=== PATIENT | female | born 1945 | race Caucasian/White ===

== ENCOUNTER → 2018-09-15 | Outpatient (CLI) | payer MEDICARE ==
[~2018-09-15] MED LIST: ALEN5TAB2 PO; ATOR20TA37 PO; LEVO50TA5 PO; LIDOCAINE 1%, 20ML ONE; LIDOCAINE 1%-EPI 1:100K, 20ML ONE; SODIUM BICARBONATE 4.0%, 5ML ONE
== END | disposition home or self-care (01) ==
LOC: CFH 08:45
PROVIDERS: ATTEND Surgery
DX: C50.911 Malignant neoplasm of unspecified site of right female breast (principal)
CPT/HCPCS: 19285; 77065; J3490

== ENCOUNTER 2018-09-21 08:03 | Day surgery (SDC) | payer MEDICARE ==
[2018-09-13 10:53] VITALS: BP 158/85
[~2018-09-21] VITALS: Ht 157.5 cm; Wt 66.0 kg
[~2018-09-21 08:03] MED LIST changes: +BUPIVACAINE/PF-EPI 0.5% 1:200K ONE; +ISOSULFAN BLUE 10 MG/ML, 5ML IV ONE; -LIDOCAINE 1%, 20ML ONE; -LIDOCAINE 1%-EPI 1:100K, 20ML ONE; -SODIUM BICARBONATE 4.0%, 5ML ONE
[2018-09-21] MEDS ORDERED: LIDOCAINE-MPF 1%, 5ML ONE (08:19)
[2018-09-21] MEDS ORDERED: SODIUM BICARBONATE 4.0%, 5ML ONE (08:19)
[2018-09-21] MEDS ORDERED: MIDAZOLAM 1 MG/ML, 2ML ONE (08:40)
[2018-09-21] MEDS ORDERED: FENTANYL PF 250 MCG/5ML ONE (08:40)
[2018-09-21] MEDS ORDERED: LACTATED RINGERS 1,000 ML IV SCH (09:27)
[2018-09-21] MEDS ORDERED: ACETAMINOPHEN 500 MG TABLET PO ONE (09:30)
[2018-09-21] MEDS ORDERED: GABAPENTIN 300 MG CAPSULE PO ONE (09:30)
[2018-09-21] MEDS ORDERED: ONDANSETRON ODT 8 MG PO ONE (09:30)
[2018-09-21] MEDS ORDERED: SCOPOLAMINE PATCH, 1.5MG PATCH.TD72 TD ONE (09:30)
[2018-09-21] MEDS ORDERED: FENTANYL PF 100 MCG/2ML IV PRN (10:00)
[2018-09-21] MEDS ORDERED: hydrALAzine 20 MG/ML, 1ML IV PRN (10:00)
[2018-09-21] MEDS ORDERED: ONDANSETRON 2MG/ML, 2ML IV PRN (10:00)
[2018-09-21] MEDS ORDERED: HYDROmorphone 2 MG/ML, 1ML IVPush PRN (10:00)
[2018-09-21] MEDS ORDERED: LABETALOL 5MG/ML, 20ML IV PRN (10:00)
[2018-09-21] MEDS ORDERED: MEPERIDINE/PF 25MG/0.5ML IVPush PRN (10:00)
[2018-09-21] MEDS ORDERED: OXYcodone 5 MG/5 ML ORAL.SOL UDC PO PRN (10:00)
[2018-09-21] MEDS ORDERED: PROMETHAZINE 25 MG/ML, 1ML IV PRN (10:00)
[2018-09-21] MEDS ORDERED: DEXAMETHASONE 4 MG/ML, 1ML ONE (10:05)
[2018-09-21] MEDS ORDERED: CEFAZOLIN 1,000 MG ONE (10:07)
[2018-09-21] MEDS ORDERED: ONDANSETRON 2MG/ML, 2ML ONE (10:52)
[2018-09-21] MEDS ORDERED: PROPOFOL 10 MG/ML, 20ML ONE (10:52)
[2018-09-21] MEDS ORDERED: SUCCINYLCHOLINE 20 MG/ML, 10ML ONE (10:52)
[2018-09-21] MEDS ORDERED: ROCURONIUM 10MG/ML,5ML ONE (10:52)
[2018-09-21] MEDS ORDERED: OXYcodone 5 MG/5 ML ORAL.SOL UDC ONE (11:48)
== END 2018-09-21 13:50 | disposition home or self-care (01) ==
LOC: OUT 08:03 → EDSTATUS 11:30 → OUT 13:50
PROVIDERS: ATTEND Surgery
DX: D05.11 Intraductal carcinoma in situ of right breast (principal); R59.1 Generalized enlarged lymph nodes; J44.9 Chronic obstructive pulmonary disease, unspecified; E78.5 Hyperlipidemia, unspecified; E03.9 Hypothyroidism, unspecified; F17.210 Nicotine dependence, cigarettes, uncomplicated; Z72.89 Other problems related to lifestyle; Z98.890 Other specified postprocedural states
CPT/HCPCS: 19301; 38525; 38792; 76098; 88307; 88333; A9541; C9898; J0330; J0690; J1100; J2405; J2704; J3010; J7120; Q0162; J2250

== ENCOUNTER 2018-10-09 08:09 | Outpatient (CLI) | payer MEDICARE ==
[~2018-10-09 08:09] MED LIST changes: -BUPIVACAINE/PF-EPI 0.5% 1:200K ONE; -ISOSULFAN BLUE 10 MG/ML, 5ML IV ONE
== END 2018-10-09 23:59 | disposition home or self-care (01) ==
LOC: ROC 08:09
PROVIDERS: ATTEND Radiology Radiation Oncology
DX: C50.411 Malignant neoplasm of upper-outer quadrant of right female breast (principal)
CPT/HCPCS: G0463